=== PATIENT | female | born 1960 | race Hispanic/Latino ===

== ENCOUNTER 2025-03-20 16:31 | Emergency (ER) | payer BC ==
[~2025-03-20] VITALS: Ht 160 cm; Wt 93.0 kg
--- NOTE | 2025-03-20 17:29 | ERN ---
ED Note History of Present Illness Stated Complaint: BACK PAIN Chief Complaint: Back Pain-No Injury Time Seen by MD: 16:34 Time Seen by Midlevel: 16:35 Dictation: 64-year-old female presents to the emergency department due to reported having pain to the right upper back at the shoulder blade area that began today at 4:00 a.m.. Currently, she denies having any chest pain, chest pressure or shortness of breath associated with this. Patient states that the pain is worsened with certain particular movements and/or palpation of the affected area. She states that movement brings her pain level up to an 8/10. Upon initial evaluation, the patient presents in no acute distress. Allergies: Coded Allergies: No Known Drug Allergies (Unverified Allergy, Unknown, 03/20/25) Emergency Care MEDICAL CODING TECHNICIAN: None Past Medical History Past Medical History: High Cholesterol, Hypertension Surgical History: Appendectomy, Hysterectomy, Surgical History Other: ABD HERNIA REPAIR, PELVIC SX PSYCH History: no pertinent psych hx History: Not Applicable RN Note Reviewed/Agreed w/PFSH: Yes Review of System Dictation MS/Extremity: Right upper back pain Initial Vital Sign VS Vital Signs Date Time Temp Pulse Resp B/P (MAP) Pulse Ox O2 Delivery O2 Flow Rate FiO2 03/20/25 16:33 98.4 88 18 132/71 98 Room Air 0 Physical Exam Dictation General: awake, alert, NAD Head/Face: Normocephalic, atraumatic Eyes: PERRL, EOMI ENT: Oral mucosa moist Neck: Trachea midline, supple Cardiovascular: RRR, no edema Respiratory: Symmetrical, non-labored Abdomen: Soft, non-tender, non-distended, no guarding. Skin: Warm, dry, good turgor, no rash MS/Extremity: Pulses equal, no cyanosis, neurovascular intact, FROM BACK: Tenderness that is 100% reproducible with palpation of the affected area which is located to the rhomboid area on the right side. Neuro: COAx4, GCS 15, steady gait, Psych: Normal behavior, mood, and affect normal Results (Laboratory/Radiology) X-RAY Comment: Two-view x-ray of the right shoulder with no cortical anomalies or deformities as interpreted by me. ED Course ED Course Orders Procedure Category Date Status Time Shoulder Comp 2+Vws Rt RAD 03/20/25 Resulted 17:08 Ketorolac 60mg/2ml PHA 03/20/25 Complete (Toradol 60mg/2ml) 17:30 Dexamethasone 4mg/Ml PHA 03/20/25 Complete 1ml Vial (Dexametha 17:30 Lidocaine (Lidoderm PHA 03/20/25 Complete Patch 5%) 18:00 Current Medications Medications (Trade) Dose Ordered Sig/Vito Route PRN Reason Start Time Stop Time Status Last Admin Dose Admin Dexamethasone Sodium Phosphate (dexaMETHasone 4MG/ML 1ML VIAL) 8 mg ONCE ONCE IM 03/20/25 17:30 03/20/25 17:31 DC 03/20/25 17:18 Ketorolac Tromethamine (toRADol 60MG/ 2ML) 60 mg ONCE ONCE IM 03/20/25 17:30 03/20/25 17:31 DC 03/20/25 17:20 Lidocaine (Lidoderm Patch 5%) 1 patch ONCE ONCE TP 03/20/25 18:00 03/20/25 18:01 DC 03/20/25 17:55 Vital Signs Date Time Temp Pulse Resp B/P (MAP) Pulse Ox O2 Delivery O2 Flow Rate FiO2 03/20/25 16:33 98.4 88 18 132/71 98 Room Air 0 Medical Decision Making MDM MDM: Differential diagnosis: Acute upper back pain, back sprain, thoracic strain. Rationale: Tests considered and ordered secondary to shared decision making include: Previous outside records reviewed: Old ER visits. Risk of complication and/or morbidity or mortality of patient management: None Medications-Per medication reconciliation Need for hospitalization: Patient does not meet criteria for hospitalization. Need for emergency major/minor surgery: No There are no social concerns with this patient. Prescription drug management Prescriptions will include symptomatic care Patient's prior external medical records from other ER visits were reviewed by me as indicated. Prior testing and results from previous visits were reviewed. Prior tests were taken into account with medical decision making and resource utilization, independent historian/historians were used to obtain complete medical history. I independently interpreted the test that were performed, results were reviewed by me and considered findings on radiology if ordered. Medical management and examination interpretation discussions were had by me with other qualified healthcare professionals as indicated for the patient's care. DX & DISP Disposition: Discharge Departure Impression: Primary Impression: Acute thoracic myofascial strain Condition: Stable Referrals: LARRY DAMON DO (PCP) Time of Disposition: 18:53 ANGÉLICA BRUNERP Mar 20, 2025 17:29
[2025-03-20] MEDS: LIDOCAINE 5% TOPICAL PATCH TP ONE (17:55)
--- NOTE | 2025-03-20 18:49 | HMCIMG ---
EXAM: CR right Shoulder, 2 View. CLINICAL HISTORY: pain COMPARISON: None provided. FINDINGS: BONES: No acute fracture or aggressive appearing osseous lesion. JOINTS: No dislocation. Mild acromioclavicular and glenohumeral joint osteoarthritis. Heterotopic calcification within the rotator interval may reflect rotator cuff tendon pathology. SOFT TISSUES: The soft tissues are unremarkable. IMPRESSION: 1. No acute findings. 2. Rotator interval calcification, may reflect rotator cuff tendon pathology. /[place]
[2025-03-20 19:06] VITALS: BP 130/75; PULSE 80; RESP 18; TEMP 98.2; O2SAT 98
== END 2025-03-20 19:01 | disposition home or self-care (01) ==
LOC: EDH 16:31
DX: S29.012A Strain of muscle and tendon of back wall of thorax, initial encounter (principal); E78.00 Pure hypercholesterolemia, unspecified; I10 Essential (primary) hypertension; Z90.49 Acquired absence of other specified parts of digestive tract; Z90.710 Acquired absence of both cervix and uterus; Z98.890 Other specified postprocedural states; X58.XXXA Exposure to other specified factors, initial encounter; Y93.89 Activity, other specified; Y92.89 Other specified places as the place of occurrence of the external cause; Y99.8 Other external cause status
CPT/HCPCS: 99284; 96372 ×2; 73030; J1885; J1100